=== PATIENT | female | born 1955 | race Caucasian/White ===

== ENCOUNTER 2021-04-06 16:19 | Emergency (ER) | payer MEDICARE ==
[2021-04-06 16:33] VITALS: BP 106/71; PULSE 81; RESP 18; TEMP 98.2
[2021-04-06] MEDS ORDERED: LIDOCAINE 1% INJ 10MG/ML (20 ML MDV) SQ ONE (17:09)
--- NOTE | 2021-04-06 18:12 | ED ---
General Adult HPI - General Chief complaint: Extremity Injury, Lower Stated complaint: toenail ripped off Time Seen by Provider: 04/06/21 17:04 Source: patient, RN notes reviewed Mode of arrival: ambulatory Limitations: no limitations - History of Present Illness Initial comments: patient is a 65-year-old male that presents to the emergency department c omplaining of right great toenail avoid. She notes that she was try to step over her d wraps and gauze running can emergency room. She note that she's does have a history of nails falling off due to chemo. She notes that her pain while at rest without oxygen at home is tolerable but with touching the toe it shoots up. She notes that she does not have a brine mixer operator that she follows as she is usually done in [place] during the winter is only appeared during the summer. She does have full range of motion and sensation in her right great toe when she slipped and caught her toenail on something and ripped it off completely. She notes that she replaced it. She denied any weakness numbness tingling decreased range of motion or sensation in her right great toe. She denied any chest pain shortness of breath headache nausea vomiting diarrhea constipation fever fatigue chills. - Related Data Previous Rx's Medication Instructions Recorded Cephalexin [Keflex] 500 mg PO Q6HR #40 cap 04/06/21 Allergies Allergy/AdvReac Type Severity Reaction Status Date / Time No Known Allergies Allergy Verified 04/06/21 16:27 Review of Systems ROS Statement: Those systems with pertinent positive or pertinent negative responses have been documented in the HPI. ROS Other: All systems not noted in ROS Statement are negative. Past Medical History Past Medical History: Cancer Additional Past Medical History / Comment(s): breast cancer, chemo induced cardiomyopathy History of Any Multi-Drug Resistant Organisms: None Reported Past Surgical History: Breast Surgery, Hysterectomy Past Psychological History: Depression Smoking Status: Never smoker Past Alcohol Use History: None Reported Past Drug Use History: None Reported General Exam Limitations: no limitations General appearance: alert, in no apparent distress Head exam: Present: atraumatic, normocephalic, normal inspection Eye exam: Present: normal appearance, PERRL, EOMI. Absent: scleral icterus, conjunctival injection, periorbital swelling Neck exam: Present: normal inspection Respiratory exam: Present: normal lung sounds bilaterally. Absent: respiratory distress, wheezes, rales, rhonchi, stridor Cardiovascular Exam: Present: regular rate, normal rhythm, normal heart sounds. Absent: systolic murmur, diastolic murmur, rubs, gallop, clicks Right Foot/Toe exam: Present: full ROM, nail avulsion (Complete avulsion of right great toenail). Absent: tenderness, swelling, abrasion Neurovascular tendon exam: Present: no vascular compromise Neurological exam: Present: alert, oriented X3 Psychiatric exam: Present: normal affect, normal mood Skin exam: Present: warm, dry, intact, normal color. Absent: rash Course Vital Signs 04/06/21 16:27 Temperature 98.2 F Pulse Rate 81 Respiratory 18 Rate Blood Pressure 106/71 O2 Sat by Pulse 94 L Oximetry Medical Decision Making - Medical Decision Making 65-year-old female with a right great toenail avulsion after tripping over her dog. Lidocaine ordered. Patient tolerated procedure well, nail was replaced and the nail fold and sutured down to act as a protective barrier and preserve nailbed nail grow. Case discussed with Dr. Aponte, patient can discharge home with follow-up to brine mixer operator. Disposition Clinical Impression: Nail avulsion of toe Disposition: HOME SELF-CARE Condition: Stable Instructions (If sedation given, give patient instructions): Nail Avulsion (ED) Additional Instructions: Please return to the Emergency Department if symptoms worsen or any other concerns. Follow-up with brine mixer operator in the next 3-5 days. Can take Tylenol Motrin as needed for pain control. Keep toe as clean and dry as possible. Taken Biaxin as prescribed until complete. Is patient prescribed a controlled substance at d/c from ED?: No Referrals: Nonstaff,Physician [Primary Care Provider] - 1-2 days Bobby Miller DPM [STAFF PHYSICIAN] - 1-2 days Time of Disposition: 18:14
== END 2021-04-06 18:33 | disposition home or self-care (01) ==
LOC: EDSEX → EC 16:19
DX: S91.201A Unspecified open wound of right great toe with damage to nail, initial encounter (principal); F32.9 Major depressive disorder, single episode, unspecified; W01.0XXA Fall on same level from slipping, tripping and stumbling without subsequent striking against object, initial encounter
CPT/HCPCS: 99283; 11730; J2001